=== PATIENT | female | born 1995 | race Caucasian/White ===

== ENCOUNTER 2019-02-20 01:43 | Inpatient (IN) | payer MEDICAID ==
[~2019-02-20] VITALS: Ht 160 cm; Wt 83.3 kg
[~2019-02-20 01:43] MED LIST: PREN1TAB13 PO
[2019-02-20 02:00] VITALS: BP 108/71; PULSE 115; RESP 20; Ht 160 cm; Wt 83.3 kg
[2019-02-20] MEDS ORDERED: LACTATED RINGER'S 1,000 ML IV PRN (03:18)
[2019-02-20] MEDS ORDERED: OXYTOCIN 30 UNITS/LR 500 ML IV SCH ×4 (03:30→19:15)
[2019-02-20] MEDS ORDERED: CARBOPROST 250 MCG INJ IM PRN ×2 (03:30→19:30)
[2019-02-20] MEDS ORDERED: MISOPROSTOL 200 MCG TAB PR PRN ×2 (03:30→19:30)
[2019-02-20] MEDS ORDERED: OXYTOCIN 30 UNITS/LR 500 ML IV PRN ×2 (03:30→19:30)
[2019-02-20] MEDS ORDERED: AMPICILLIN 2 GM/NS (PMX) 100 ML IV ONE (03:30)
[2019-02-20] MEDS ORDERED: LIDOCAINE 1% (MPF) 30 ML INJ INJ PRN (03:30)
[2019-02-20] MEDS ORDERED: BUTORPHANOL 2 MG INJ IV PRN ×2 (03:30)
[2019-02-20] MEDS ORDERED: METHYLERGONOVINE 0.2 MG INJ IM PRN ×2 (03:30→19:30)
[2019-02-20] MEDS: LACTATED RINGER'S 1,000 ML IV SCH ×2 (03:46→11:31)
[2019-02-20] MEDS ORDERED: AMPICILLIN 1 GM/NS (PMX) 50 ML IV SCH ×2 (07:30→19:30)
[2019-02-20] MEDS ORDERED: IBUPROFEN 600 MG TAB PO PRN (18:30)
[2019-02-20 18:50] VITALS: BP 102/55; PULSE 87; RESP 19
[2019-02-20] MEDS ORDERED: HYDROCODONE/APAP (5/325) TAB PO PRN (19:30)
[2019-02-20] MEDS ORDERED: WITCH HAZEL/GLYCERIN PAD PR PRN (19:30)
[2019-02-20] MEDS ORDERED: ACETAMINOPHEN 325 MG TAB PO PRN (19:30)
[2019-02-20] MEDS ORDERED: DIPHENHYDRAMINE 25 MG CAP PO PRN (19:30)
[2019-02-20] MEDS ORDERED: MAGNESIUM HYDROXIDE 30ML CUP PO PRN (19:30)
[2019-02-20] MEDS ORDERED: BENZOCAINE 20% 56 ML SPRAY TOP PRN (19:30)
[2019-02-20] MEDS ORDERED: SENNA/DOCUSATE NA (8.6MG/50MG) TAB PO PRN (19:30)
[2019-02-20] MEDS ORDERED: ZOLPIDEM 5 MG TAB PO PRN (19:30)
[2019-02-20] MEDS ORDERED: ONDANSETRON 4 MG INJ IV PRN (19:30)
[2019-02-20] MEDS ORDERED: NACL 0.9% 3 ML SYG IV SCH (19:30)
[2019-02-20] MEDS: LANOLIN HPA 1 PKT TOP PRN (21:03)
[2019-02-20] MEDS: IBUPROFEN 600 MG TAB PO SCH (23:41)
[2019-02-21 03:40] VITALS: BP 97/55; PULSE 75; RESP 19
[2019-02-21] MEDS: IBUPROFEN 600 MG TAB PO SCH ×3 (05:28→18:21)
[2019-02-21 08:00] VITALS: BP 109/57; PULSE 67; RESP 16
[2019-02-21 12:00] VITALS: BP 110/60; PULSE 70; RESP 17
[2019-02-21 17:07] VITALS: BP 117/61; PULSE 69; RESP 18
[2019-02-21] MEDS: LANOLIN HPA 1 PKT TOP PRN (18:20)
[2019-02-21 20:00] VITALS: BP 121/73; PULSE 73; RESP 20
[2019-02-22] MEDS: IBUPROFEN 600 MG TAB PO SCH ×2 (00:35→06:01)
[2019-02-22 05:00] VITALS: BP 102/65; PULSE 68; RESP 20
[2019-02-22 08:00] VITALS: BP 109/62; RESP 18
[2019-02-22] MEDS ORDERED: DIPHTH/TET/ACEL PERTUSS (ADULT) 0.5 ML VIAL IM* ONE (09:00)
[2019-02-22] MEDS ORDERED: MEASLES,MUMPS,RUBELLA VACCINE INJ SC* ONE (09:00)
== END 2019-02-22 11:15 | disposition home or self-care (01) | DRG 807 ==
LOC: OBT 01:43 → L-D 01:44 → OBT 03:18 → L-D 03:32 → PP1 18:25
PROVIDERS: ADMIT Specialist; ATTEND Specialist
PROC: 10E0XZZ Delivery of Products of Conception, External Approach (ICD-10-PCS; principal; 2019-02-20)
DX: O80 Encounter for full-term uncomplicated delivery (principal); Z37.0 Single live birth; Z3A.38 38 weeks gestation of pregnancy
CPT/HCPCS: 76818; 84112; 85025; 85610; 85730; 86592; 86703; 86850; 86900; 86901; 87340; 99464; G0463; J0290; J2590; J7120